=== PATIENT | female | born 1985 | race Caucasian/White ===

== ENCOUNTER 2021-03-03 21:49 | Emergency (ER) | payer OTHER ==
[~2021-03-03 21:49] MED LIST: AMBIEN10 MG PO; ASPIR-TRIN325 MG PO; COREG6.25 MG PO; CYMBALTA 30 MG30 MG PO; HUMALOG100 UNIT/1 SC; LEVEMIR100 UNIT/1 SC; LIDODERM PATCH 51 EA TOP; LOPRESSOR 25 MG25 MG PO; MELATONIN1 MG PO; NEURONTIN 300300 MG PO; ORGANIDIN NR 2200 MG PO; OXYCODONE HCL5 MG PO; ROBAXIN500 MG PO; THERA1 EACH PO; TYLENOL 325MG325 MG PO
[2021-03-03 23:34] LABS: HEMOGLOBIN 9.4 gm/dl (12.3-15.3); RED BLOOD COUNT 2.97 M/UL (4.00-5.10); WHITE BLOOD COUNT 7.5 K/UL (4.5-11.0)
[2021-03-04] MEDS ORDERED: PERCOCET 5/325 T1 EA PO (01:17)
== END 2021-03-04 01:50 | disposition home or self-care (01) ==
LOC: ER1 21:49
PROVIDERS: Family Medicine
DX: R10.9 Unspecified abdominal pain (principal); F17.200 Nicotine dependence, unspecified, uncomplicated; N19 Unspecified kidney failure; M54.9 Dorsalgia, unspecified; E10.22 Type 1 diabetes mellitus with diabetic chronic kidney disease; Z99.2 Dependence on renal dialysis
CPT/HCPCS: 80053; 81001; 82962; 83690; 85025; 96372; 99284; J2270; J2550